=== PATIENT | female | born 1935 | race Caucasian/White ===

== ENCOUNTER 2024-04-15 12:52 | Outpatient (AMB) | payer MEDICARE, MEDICAID, SELFPAY ==
--- NOTE | 2024-04-15 13:01 | HO.SPINEOV ---
Intake Visit Reasons: Lumbar radiculopathy Intake Note: Ms. Macias is here today c/o low back pain. 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 HPI: This 88-year-old lady is suffering from severe right leg pain radiating from her back down to the outside of her lower leg into her foot for several years. The pain has progressed. Two years ago she was still able to walk more than 3 miles but currently is hardly able to walk due to the pain. Standing also increases her symptoms. Sitting down is the best position. In addition to the pain, she has numbness and tingling in the L5 dermatome. She had several epidural steroid injections that gave him partial relief. She also underwent physical therapy without success. She was referred by , pain management for a surgical consultation. The following conservative treatment options were tried without success antiinflammatories, tylenol, physician guided home exercise plan, cortisone shots PMH: Hypercholesterolemia, fibromyalgia, osteoporosis, hysterectomy Medications: Alprazolam, atorvastatin, meclizine, Inderal, famotidine Allergies: NKDA Social history: Lives at home. Nonsmoker. Good social support. Physical Exam: Pleasant female. Straight leg raise produces pain radiating down her right leg. There has numbness over the lateral side of her right lower leg. No weakness. She ambulates with a limp. Radiological Studies: MRI done at [facility] on 01/06/2024 shows moderate right L5 neuroforaminal stenosis. Impression/Plan: This 88-year-old female suffering from right lumbar radiculopathy due to right L5 neuroforaminal stenosis. Conservative treatments failed. She has a rise relatively healthy and therefore I offered her a right L5 foraminotomy to decompress the L5 nerve root. She is scheduled for 05/26/2024. She will obtain preoperative clearance from her primary care physician. Thank you for allowing me to participate in your patients care. total time spent was 50 minutes in counseling ,coordination of plan, personal review of imaging, surgical decision making and subsequent plan Jona Alfonso MD, PhD Sp[facility] Trained Neurosurgeon Director, [facility] Coding Level of Care Code New Pt Level 4 (06998) Diagnoses Neuroforaminal stenosis of lumbar spine M48.061 Lumbar radiculopathy, right M54.16
== END 2024-04-15 13:29 | disposition home or self-care (01) ==
PROVIDERS: PCP Family Medicine; Referring Provider Physical Medicine & Rehabilitation; Visit Provider Neurological Surgery
DX: M48.061 Spinal stenosis, lumbar region without neurogenic claudication (principal); M54.16 Radiculopathy, lumbar region
CPT/HCPCS: 99204

== ENCOUNTER → 2024-04-15 12:52 | Outpatient (BNVA) | payer MEDICARE, MEDICAID, SELFPAY | PROVIDERS: PCP Family Medicine; Visit Provider Neurological Surgery | DX: M48.061 Spinal stenosis, lumbar region without neurogenic claudication (principal); M54.16 Radiculopathy, lumbar region | CPT/HCPCS: 99202 ==

== ENCOUNTER 2024-05-26 08:41 | Day surgery (SDC) | payer MEDICARE, MEDICAID, SELFPAY ==
[2024-05-12 08:36] VITALS: BMI 23.8
--- NOTE | 2024-05-25 10:48 | HO.ANESPROP2 ---
Documented by User: Karla Ang NP 05/25/24 10:50 HPI - Anesthesia Eval Consult details Narrative: 88yo F for Right L5 Foraminotomy Optimized per PCP [facility] Active Problems Active Problems: All Active Problems Lumbar radiculopathy, right (Acute) Neuroforaminal stenosis of lumbar spine (Acute) Past Medical History Medical History Lymphoma Arthritis Hiatal hernia GERD (gastroesophageal reflux disease) Vertigo Anxiety Benign essential tremor Asthma Lumbar radiculopathy Osteoporosis Fibromyalgia Elevated cholesterol Surgical History Surgical History History of esophagogastroduodenoscopy (EGD) H/O colonoscopy Hx of cataract extraction Hx of hysterectomy S/P epidural steroid injection Social History Social History Are you a primary eye care professional to a significant other at home: No Do you presently have visiting nurse or other home services: No Patient Tobacco Use Status: Never used Tobacco Use of substances other than those prescribed or required for medical reasons: No Spiritual Healthcare Practices: none Roman Catholic Healthcare Practices: Anglican Cultural Healthcare Practices: none Are you DNR?: No Advance Directives Information Provided: Yes (as above noted-will bring copy DOS) Advance Directives on File: No Recently lost weight without trying: No Eating poorly because of decreased appetite: No Nutrition Risks: Surgical patient >75years FDLMP: N/A Poor oral hygiene: No (upper & lower full denture) Meds Allergies Allergy/AdvReac Type Severity Reaction Status Date / Time kiwi Allergy Intermediate mouth Verified 05/26/24 09:02 itching lactose Allergy Intermediate Gastrointestinal Verified 05/26/24 09:02 Upset peach Allergy Intermediate mouth Verified 05/26/24 09:02 itching Home Medications ?Medication ?Instructions ?Recorded ?Confirmed ?Last Taken ?Type albuterol sulfate 0.63 mg/3 mL 0.63 mg inhalation Q4-6H PRN 05/12/24 05/12/24 Unknown History solution for nebulization Shortness Of Breath Or Wheezing albuterol sulfate 90 mcg/actuation 1 - 2 puff inhalation Q4H PRN 05/12/24 05/12/24 Unknown History aerosol inhaler (Ventolin HFA) Shortness Of Breath Or Wheezing alprazolam 1 mg tablet 0.5 mg PO DAILY PRN Anxiety 05/12/24 05/12/24 Unknown History atorvastatin 20 mg tablet 20 mg PO DAILY 05/12/24 05/12/24 Unknown History famotidine 20 mg tablet 20 mg PO DAILY PRN Acid Reflux 05/12/24 05/12/24 Unknown History meclizine 25 mg tablet 25 mg PO DAILY PRN Vertigo 05/12/24 05/12/24 Unknown History multivitamin 1 tab PO QAM 05/12/24 05/12/24 Unknown History propranolol 60 mg tablet mg PO DAILY 05/12/24 Unknown History Exam Height,Weight and Vital Signs: Height 5 ft 1 in Weight 57.153 kg Pertinent Lab Results Pertinent Lab Results: [facility] 08/2023 from outside facility [place] Narrative Narrative: EKG 04/2024 SR Inferior and antiseptal T wave changes are nonspecific Assessment and Plan Assessment Anesthesia Assessment: Chart Reviewed Documented by User: Efrain Zamarripa MD 05/26/24 11:13 [facility] Past Medical History Medical History Lymphoma Arthritis Hiatal hernia GERD (gastroesophageal reflux disease) Vertigo Anxiety Benign essential tremor Asthma Lumbar radiculopathy Osteoporosis Fibromyalgia Elevated cholesterol Family History Family history of problems with anesthesia: No Surgical History Surgical History History of esophagogastroduodenoscopy (EGD) H/O colonoscopy Hx of cataract extraction Hx of hysterectomy S/P epidural steroid injection History of Problems with Anesthesia: No Social History Social History Are you a primary eye care professional to a significant other at home: No Do you presently have visiting nurse or other home services: No Patient Tobacco Use Status: Never used Tobacco Use of substances other than those prescribed or required for medical reasons: No Spiritual Healthcare Practices: none Roman Catholic Healthcare Practices: Anglican Cultural Healthcare Practices: none Are you DNR?: No Advance Directives Information Provided: Yes (as above noted-will bring copy DOS) Advance Directives on File: No Recently lost weight without trying: No Eating poorly because of decreased appetite: No Nutrition Risks: Surgical patient >75years FDLMP: N/A Poor oral hygiene: No (upper & lower full denture) Meds Allergies Allergy/AdvReac Type Severity Reaction Status Date / Time kiwi Allergy Intermediate mouth Verified 05/26/24 09:02 itching lactose Allergy Intermediate Gastrointestinal Verified 05/26/24 09:02 Upset peach Allergy Intermediate mouth Verified 05/26/24 09:02 itching Home Medications ?Medication ?Instructions ?Recorded ?Confirmed ?Last Taken ?Type albuterol sulfate 0.63 mg/3 mL 0.63 mg inhalation Q4-6H PRN 05/12/24 05/12/24 Unknown History solution for nebulization Shortness Of Breath Or Wheezing albuterol sulfate 90 mcg/actuation 1 - 2 puff inhalation Q4H PRN 05/12/24 05/12/24 Unknown History aerosol inhaler (Ventolin HFA) Shortness Of Breath Or Wheezing alprazolam 1 mg tablet 0.5 mg PO DAILY PRN Anxiety 05/12/24 05/12/24 Unknown History atorvastatin 20 mg tablet 20 mg PO DAILY 05/12/24 05/12/24 Unknown History famotidine 20 mg tablet 20 mg PO DAILY PRN Acid Reflux 05/12/24 05/12/24 Unknown History meclizine 25 mg tablet 25 mg PO DAILY PRN Vertigo 05/12/24 05/12/24 Unknown History multivitamin 1 tab PO QAM 05/12/24 05/12/24 Unknown History propranolol 60 mg tablet mg PO DAILY 05/12/24 Unknown History Exam Airway Mallampati Class: II TM Dist: >3cm Neck ROM: Full Denture: Upper and Lower Assessment and Plan Assessment Anesthesia Assessment: Anesthesia Plan Discussed Final Anesthetic Review Family History of Problems with Anesthesia: No History of Problems with Anesthesia: No NPO: Yes ASA Class: III Final Preanesthetic Review: No Changes in Pt Med Stat, Meds/Allgs Chart Reviewed, Consent Obtained/Reviewed and Anes Risks/Benef Reviewed Patient Risk: Intermediate Procedure Risk: Intermediate Anesthetic Plan Anesthetic Plan: GA Disposition: Standard PACU
[2024-05-26] VITALS (8 sets, daily range): BP systolic 120–158; BP diastolic 57–86; PULSE 78–92; RESP 16–18; TEMP 36.3–36.7; O2SAT 96–99; BMI 24.2
[2024-05-26] MEDS: Lactated Ringers 1,000 ML 100 ML IVCONT (09:12)
--- NOTE | 2024-05-26 09:48 | P.HPSUR_ITS ---
Pre-Procedural Eval Section A - 24 Hr Update-Section A only Date of Service: 05/26/24 The patient is an INPATIENT: No Section B - Complete if H&P > 30 days Chief Complaint: Spinal stenosis, lumbar region without neurogenic Allergies: Allergies Allergy/AdvReac Type Severity Reaction Status Date / Time kiwi Allergy Intermediate mouth Verified 05/26/24 09:02 itching lactose Allergy Intermediate Gastrointestinal Verified 05/26/24 09:02 Upset peach Allergy Intermediate mouth Verified 05/26/24 09:02 itching Review of Systems Sugical H&P ROS: Negative: Constitution, Cardiovascular, Respiratory, Neurological, Psychiatric, Hem-Onc, Allergic/Immunologic, Gastrointestinal, Genitourinary, Musculoskeletal, Integumentary, Endocrine and Eye s/Ears/Nose/Throat Exam Surgical H&P Exam: Normal: HEENT, Normal: Heart, Normal: Lungs, Normal: Extremities, Normal: Abdomen, Normal: Skin and Normal: Neurological (Awake, alert) Plan Diagnosis/Plan: Unchanged I have reviewed the history and physical and performed a pertinent physical examination on my patient. No changes have occurred unless specified. Right L5 foraminotomy Time Spent With Patient Time: Total time managing care of this patient today _5___ minutes.
[2024-05-26] MEDS: methocarbamoL 750 MG TABLET PO (10:00)
[2024-05-26] MEDS: Gabapentin 300 MG CAPSULE PO (10:00)
--- NOTE | 2024-05-26 10:41 | P.DS_ITS ---
DS: Providers Provider Date of Service: 05/26/24 Date of discharge: 05/26/24 Primary care physician: Samuel Covington MD Admitting clinician: Jona Alfonso DS: Diagnosis Discharge Diagnosis (1) Neuroforaminal stenosis of lumbar spine: Status: Acute DS: Summary Time Attestation Discharge Coordination Time (in mins): 6 Quality: Safe Use of Opioids Does Pt have an Active Cancer Diagnosis on the Problem List?: No Quality: Stroke Does the patient have a stroke diagnosis?: No Physical Exam Vital Signs: Vital Signs: Last Vital Signs Temp 98.0 F 05/26/24 09:20 Pulse 90 05/26/24 09:20 Resp 18 05/26/24 09:20 BP 133/67 05/26/24 09:20 Pulse Ox 96 05/26/24 09:20 O2 Del Method Room Air 05/26/24 09:20 BMI result Body Mass Index 24.2 Discharge Plan Discharge Patient Disposition: Home, Self-Care Referrals: Sameul Covington MD [Primary Care Provider] - 1 Week Discharge Medications: New tramadol 50 mg tablet 50 mg PO Q6H PRN (Reason: pain) Qty: 20 0RF Continued multivitamin Tablet 1 tab PO QAM albuterol sulfate 0.63 mg/3 mL Solution For Nebulization 0.63 mg INHALATION Q4-6H PRN (Reason: Shortness Of Breath Or Wheezing) atorvastatin 20 mg tablet 20 mg PO DAILY alprazolam 1 mg Tablet 0.5 mg PO DAILY PRN (Reason: Anxiety) propranolol 60 mg tablet PO DAILY famotidine 20 mg Tablet 20 mg PO DAILY PRN (Reason: Acid Reflux) meclizine 25 mg Tablet 25 mg PO DAILY PRN (Reason: Vertigo) albuterol sulfate [Ventolin HFA] 90 mcg/actuation HFA aerosol inhaler 1 - 2 puff INHALATION Q4H PRN (Reason: Shortness Of Breath Or Wheezing) Diet: Advance to usual diet Activity on Discharge: As tolerated Activity Restrictions/Additional Instructions: After your spinal surgery we ask you to observe the following restrictions/guidelines: YOU HAD A SMALL SPINAL FLUID LEAK SEEN AT THE TIME OF SURGERY. IT IS NORMAL TO EXPERIENCE MILD HEADACHES WHEN THIS HAPPENS. IF YOU EXPERIENCE SEVERE HEADACHES PLEASE CALL OUR OFFICE TO UPDATE US. USUALLY IT WILL GO AWAY IF YOU STAY FLAT IN BED FOR A DAY. IF YOU EXPERIENCE ANY LEAKING FROM YOUR WOUND WHICH LOOKS LIKE CLEAR WATER, WE ASK THAT YOU CALL US RIGHT AWAY. [phone] Activity: It is normal to feel some discomfort as you increase your activity, but that will improve with time. We ask you avoid heavy lifting or acitivities that cause pain. As a general rule, 8lbs is a safe limit for lifting right after surgery. Walk as much as you feel comfortable but not to exhaustion. You will feel extra tired the first few days after surgery. Stay well hydrated. It is OK to walk up and down stairs You may return to driving when you are off narcotics (such as vicodin, oxycodone, dilaudid, etc), and you are back to normal functional capacity. If you have any concerns please check with office before driving. Return to work is specific to each patient and each surgery, so please speak with your doctor/PA at first follow up. Please bring paperwork such as FMLA at that time if you need it filled out. Medications: For optimum pain control, it is best to start with a combination of 500 mg of Tylenol every 4 hours with 600 mg of Motrin every 8 hours, and use narcotics as needed in between for breakthrough pain. We will give you a short supply of narcotics after surgery (usually one weeks worth). If you need more please call the office but do not use more than prescribed. You will need to give our office 48 hours notice if you need narcotics refilled and we do not fill narcotics on weekends or evenings. If you are on a narcotic, it is a good idea to take a stool softener such as colace or senna to avoid constipation If you take blood thinner such as aspirin, Plavix, Coumadin, Effient, Eliquis etc for conditions such as Afib, DVT, Pulmonary embolus, coronary disease, stents etc please speak with your surgeon about specific details as to when you can resume these medications. You can resume NSAIDs on post op day 1 (eg: Motrin, Naproxen, etc). Follow up: Please call the office, , after surgery to arrange a 3 week follow up for wound check. Wound Care: You may remove your dressing on the first day after surgery. ?You may ?leave open to air. You have sutures in your wound that will need to come out in 7-10 days. Please call the office to arrange that appt. You may shower on post op day # 1 We ask that you do not let the water soak the wound. If it does get wet, just towel dry lightly. Please do not scrub your incision or place any type of chemical/ointment on the wound. No tub baths, pools or jacuzzis for one month. If you have any leaking or redness from your wound, or fevers, please call offic e Print Language: South Korean
--- NOTE | 2024-05-26 11:29 | W.PM.OPN ---
Operative Note Operative Note Date of Service: 05/26/24 Narrative: Preoperative Diagnosis: Spinal stenosis/lateral recess stenosis/neural foraminal stenosis Operation: Right L5 Laminotomy, Partial facetectomy and foraminotomy with use of microscope Consent Informed Consent was obtained for this operation. I have explained the nature, purpose and benefits of the operation. I have discussed the risks and benefit of the operation including possible complications or adverse events with patient/family. Alternative(s) were discussed with the patient with their relative benefits and risks as well as the consequences of not accepting the operation were included in obtaining consent. Surgeon: SEAN CLEVELAND MD, PHD Procedure Assisted By: celine Braden Description of Procedure This patient is suffering from a right lumbar radiculopathy due to L5 foraminal stenosis. The patient was offered a decompression of the nervous structures. The procedure complications were explained. The patient was consented. The patient was brought to the operating room and endotracheally intubated. The patient was turned in prone position on the Geronimo frame. Prep and drape was done followed by timeout. Physician assistant women's basketball coach provided access. A mid lumbar incision was made followed by release of the paravertebral muscle on the right side to expose the L5 lamina and facet joint. An intraoperative x-ray was obtained to confirm the correct level. The microscope was brought in. I took over the procedure. The high-speed drill was used to do a L5 laminotomy. A small durotomy occurred due to the lack of significant flavum ligament below the bone. Piece of DuraGen was used to cover defect. The procedure continued as planned. #2 Kerrison was used to further remove the lamina towards the L5 foramen. With a nerve hook the medial wall of the L5 pedicle was palpated as well as the beginning of the L5 foramen. The facet joint was partially drilled down after which with a #2 Kerrison a foraminotomy was done. Finally a foraminotomy Kerrison was used to complete the foraminotomy. A long nerve hook could be easily passed lateral and dorsally from the nerve root, a sign of relief of the neuroforaminal stenosis and decompression of the nerve root . A Valsalva maneuver showed no active CSF leakage. Tisseel was sprayed over the DuraGen. The microscope was removed. Hemostasis was done. Incision was closed in 2 layers. Steri-Strips were used to approximate incision. An OpSite with Tegaderm was used to cover the incision. All sponge needle counts were correct. Patient was extubated and transported in stable is to recovery room. Anesthesia: General Estimated Blood Loss (ml): Minimal Duration of Surgery: Under 60 Minutes Postoperative Plan: Discharge to home
== END 2024-05-26 13:55 | disposition home or self-care (01) ==
PROVIDERS: PCP Family Medicine; Visit Provider Neurological Surgery
PROC: (CPT 63047; principal; 2024-05-26 12:00)
DX: M48.061 Spinal stenosis, lumbar region without neurogenic claudication (principal); M54.16 Radiculopathy, lumbar region; M79.604 Pain in right leg; R26.2 Difficulty in walking, not elsewhere classified; R20.0 Anesthesia of skin; F20.2 Catatonic schizophrenia; M79.7 Fibromyalgia; M81.0 Age-related osteoporosis without current pathological fracture; Z79.899 Other long term (current) drug therapy; Z98.890 Other specified postprocedural states
CPT/HCPCS: 63047; C1763; C9250; J0131; J0690; J1100; J2003; J2405; J2704; J3010

== ENCOUNTER → 2024-05-26 08:41 | Outpatient (BNV) | payer MEDICARE, MEDICAID, SELFPAY | PROVIDERS: PCP Family Medicine; Visit Provider Neurological Surgery | DX: M48.061 Spinal stenosis, lumbar region without neurogenic claudication (principal) | CPT/HCPCS: 63047; 99499 ==

== ENCOUNTER 2024-06-17 14:35 | Outpatient (AMB) | payer MEDICARE, MEDICAID, SELFPAY ==
--- NOTE | 2024-06-17 14:36 | A.SPINEOV_ITS ---
Intake Visit Reasons: 1st post op Intake Note: Ms. Macias is here today for his 1st post-op. Case Manager Specialist Required: No Allergies kiwi Allergy (Intermediate, Verified 05/26/24 09:02) mouth itching lactose Allergy (Intermediate, Verified 05/26/24 09:02) Gastrointestinal Upset peach Allergy (Intermediate, Verified 05/26/24 09:02) mouth itching Assessment & Plan Assessment & Plan (1) Lumbar radiculopathy, right: Code(s): M54.16 - Radiculopathy, lumbar region Category: Medical Plan Mrs Macias is 3 weeks out from her L5 laminotomy. Her right leg pain is improved. She is still sore in her back from where we did the incision. Her wound looks completely healed. She is able to stand up out of a chair on her own. I reassured her these aches and pains after surgery should get better with time. I will see her back in 6 weeks for final checkup. She was asking about p hysical therapy but I think it is a little too early right now. Jeffrey Alfonso MD, PhD [facility] Coding Level of Care Code Global (45618) Diagnoses Lumbar radiculopathy, right M54.16
== END 2024-06-17 15:42 | disposition home or self-care (01) ==
PROVIDERS: PCP Family Medicine; Visit Provider Physician Assistant
DX: M54.16 Radiculopathy, lumbar region (principal)
CPT/HCPCS: 99024

== ENCOUNTER → 2024-06-17 14:35 | Outpatient (BNVA) | payer MEDICARE, MEDICAID, SELFPAY | PROVIDERS: PCP Family Medicine; Visit Provider Physician Assistant | DX: Z48.89 Encounter for other specified surgical aftercare (principal); M54.16 Radiculopathy, lumbar region; Z98.890 Other specified postprocedural states | CPT/HCPCS: 99212 ==